=== PATIENT | female | born 2000 | race Caucasian/White ===

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

== ENCOUNTER → 2020-05-25 10:09 | Outpatient (CLI) | payer BC, SELFPAY ==
[2018-07-18 22:15] VITALS: BMI 18.2
== END ==
PROVIDERS: Visit Provider Nurse Practitioner
DX: N34.3 Urethral syndrome, unspecified (principal)
CPT/HCPCS: 87086

== ENCOUNTER → 2020-07-04 15:42 | Outpatient (CLI) | payer BC, SELFPAY ==
[2018-07-18 22:15] VITALS: BMI 18.2
[2020-07-04] MEDS: COVID-19 VACC #1, MRNA(MOD) 100 MCG/0.5 ML VIAL IM (15:55)
== END ==
PROVIDERS: Visit Provider Internal Medicine
DX: Z23 Encounter for immunization (principal)
CPT/HCPCS: 0011A; 91301

== ENCOUNTER → 2020-08-01 16:05 | Outpatient (CLI) | payer BC, SELFPAY ==
[2018-07-18 22:15] VITALS: BMI 18.2
[2020-08-01] MEDS: COVID-19 VACC #2, MRNA(MOD) 100 MCG/0.5 ML VIAL IM (16:16)
== END ==
PROVIDERS: Visit Provider Internal Medicine
DX: Z23 Encounter for immunization (principal)
CPT/HCPCS: 0012A; 91301